=== PATIENT | male | born 1970 | race Caucasian/White ===

== ENCOUNTER 2016-09-27 12:10 | Emergency (ER) | payer OTHER ==
--- NOTE | 2016-09-27 12:18 | PDOC ---
History of Present Illness - General Chief Complaint: Cold Symptoms Stated Complaint: COUGH FOR OVER A WEEK Time Seen by Provider: 09/27/16 12:18 History Source: Patient Exam Limitations: No Limitations - History of Present Illness Initial Comments: 09/27/16 12:19 The patient is a 46-year-old male with a significant past medical history of cerebral palsy, hyperlipidemia, who presents to the emergency department complaining of cough for one week. The cough is occasionally productive of a brownish sputum. He denied fever, chills, sweating, myalgia, malaise/fatigue. He denies chest pain, dyspnea, dyspnea on exertion, orthopnea, lower extremity edema. The patient denies recent travel/surgeries/immobility, lower extremity edema, calf pain or tenderness, tobacco use, hormone use, personal or family history of thrombosis. 09/27/16 12:25 Past History - Past Medical History Allergies/Adverse Reactions: Allergies Allergy/AdvReac Type Severity Reaction Status Date / Time No Known Allergies Allergy Verified 09/27/16 12:13 Home Medications: Ambulatory Orders Acetaminophen [Tylenol] 500 mg PO BID PRN 09/27/16 Atorvastatin Ca [Lipitor] 10 mg PO DAILY 09/27/16 Bupropion HCl [Wellbutrin -] 300 mg PO DAILY 09/27/16 Escitalopram Oxalate [Lexapro -] 10 mg PO DAILY 09/27/16 Fenofibrate Nanocrystallized [Tricor] 48 mg PO DAILY 09/27/16 Guaifenesin [Mucinex -] 600 mg PO QID 09/27/16 Review of Systems - Review of Systems Comments:: 09/27/16 12:19 CONSTITUTIONAL: Absent: fever, chills, fatigue EYES: Absent: visual changes ENT: Absent: ear pain, sore throat CARDIOVASCULAR: Absent: chest pain, palpitations, loss of consciousness RESPIRATORY: Present: Cough Absent: SOB GI: Absent: abdominal pain, nausea, vomiting, constipation, diarrhea GENITOURINARY: Absent: dysuria, frequency, hematuria MUSKULOSKELETAL: Absent: back pain, arthralgia, myalgia SKIN: Absent: rash NEURO: Absent: headache, dizziness *Physical Exam - Physical Exam Comments: 09/27/16 12:19 GENERAL: Well-appearing, well-nourished. No apparent distress. HEENT: Normocephalic, atraumatic. PERRL, EOM intact. CARDIOVASCULAR: Normal S1, S2. Regular rate and rhythm. PULMONARY: Clear to auscultation bilaterally. ABDOMEN: Soft, non-distended, non-tender. EXTREMITIES: Normal ROM in all four extremities. No gross deformities. SKIN: Warm, dry. No rash NEUROLOGICAL: No focal neurological deficits. Medical Decision Making - Medical Decision Making 09/27/16 12:27 The patient is well appearing and in no acute distress Vitals noted Will obtain CXR 09/27/16 12:35 Chest x-ray emergency Department interpretation: No acute cardiopulmonary disease Clinical impression: Acute bronchitis I discussed the physical exam findings, ancillary test results and final diagnoses with the patient. I answered all of the patient's questions. The patient was satisfied with the care received and felt comfortable with the discharge plan and treatment plan. The patient will call their primary care physician within 24 hours to arrange follow-up and will return to the Emergency Department with any new, persistent or worsening symptoms. *DC/Admit/Observation/Transfer Diagnosis at time of Disposition: Cough - Discharge Dispostion Disposition: HOME Condition at time of disposition: Stable - Patient Instructions Printed Discharge Instructions: DI for Acute Bronchitis, DI for Viral Upper Respiratory Infection -- Adult Additional Instructions: Return to the emergency department immediately with ANY new, persistent or worsening symptoms. You MUST call and follow up with your doctor tomorrow. Please make sure your doctor reviews the results of your emergency department evaluation. - Post Discharge Activity Work/School Note: Back to Work
[2016-09-27 12:43] VITALS: BP 118/78; PULSE 90; TEMP 98.2; BMI 25.0
== END 2016-09-27 12:48 | disposition home or self-care (01) ==
LOC: FER 12:10
DX: R05 Cough (principal); G80.9 Cerebral palsy, unspecified; E78.5 Hyperlipidemia, unspecified
CPT/HCPCS: 71020-TC; 99281-25